=== PATIENT | male | born 1960 | race Caucasian/White ===

== ENCOUNTER 2021-12-07 09:14 | Emergency (ER) | payer OTHER ==
[~2021-12-07] VITALS: Ht 170.2 cm; Wt 102.1 kg
--- NOTE | 2021-12-07 09:30 | NUR ---
To ER bed 04,RA39 From [facility] "Initial call was for weakness/Lethargic/pinpoint pupils/Hypotensive/low O2sats 89% gave narcan 4mg and 2IVP NS600 BS127, breathing even and non labored, connected to monitor, awaiting md rodriguez
--- NOTE | 2021-12-07 09:36 | NUR ---
DR MCNEIL AT BEDSIDE FOR EVAL
--- NOTE | 2021-12-07 09:37 | NUR ---
hooked to monitors
--- NOTE | 2021-12-07 09:38 | NUR ---
bood sample drawn sent to lab
--- NOTE | 2021-12-07 09:40 | NUR ---
urine sample collected sent to lab
--- NOTE | 2021-12-07 09:49 | NUR ---
TECH AT BEDSIDE FOR EKG
--- NOTE | 2021-12-07 09:50 | NUR ---
COVID SWAB COLLECTED AND SENT TO LAB
--- NOTE | 2021-12-07 09:52 | NUR ---
TAKEN TO CT VIA [facility]
[2021-12-07] MEDS ORDERED: IV NS 0.9% 1,000 ML BAG IV ONE (10:00)
[2021-12-07 10:01] LABS: BASOPHILS % (AUTO) 0.3 % (0.0-2.0); EOSINOPHILS % (AUTO) 1.7 % (0.0-6.0); HEMATOCRIT 38 % (39-51); HEMOGLOBIN 13.1 g/dL (13.5-17.5); LYMPHOCYTES # (AUTO) 0.6 K/uL (0.8-4.8); LYMPHOCYTES % (AUTO) 24.3 % (20.0-44.0); MEAN CORPUSCULAR HGB CONC 34 g/dl (31.0-36.0); MEAN CORPUSCULAR VOLUME 94 fL (80-96); MONOCYTES # (AUTO) 0.3 K/uL (0.1-1.30); NEUTROPHILS # (AUTO) 1.4 K/uL (1.8-8.9); NEUTROPHILS % (AUTO) 61.7 % (43.0-81.0); PLATELET COUNT (AUTO) 57 K/uL (150-450); RED BLOOD CELL COUNT(AUTO) 4.06 MIL/uL (4.5-6.0); WHITE BLOOD COUNT (AUTO) 2.3 K/uL (4.3-11.0)
[2021-12-07 10:16] LABS: CALCIUM, SERUM 8.2 mg/dL (8.5-10.1); CARBON DIOXIDE 27 mmol/L (21-32); CHLORIDE 103 mmol/L (98-107); CREATININE 0.5 mg/dL (0.6-1.3); GLUCOSE 150 mg/dL (74-106); POTASSIUM 3.1 mmol/L (3.5-5.1); SODIUM SERUM 138 mmol/L (136-145); UREA NITROGEN, BLOOD 14 mg/dL (7-18)
[2021-12-07 10:21] LABS: ALANINE AMINOTRANSFERASE 48 U/L (12-78); ALBUMIN 3.2 g/dL (3.4-5.0); ALCOHOL, BLOOD < 3 mg/dL (0-0); ALKALINE PHOSPHATASE 70 U/L (46-116); ASPARTATE AMINOTRANSFERASE 54 U/L (15-37); BILIRUBIN,DIRECT 0.6 mg/dL (0.0-0.2); BILIRUBIN,TOTAL 1.7 mg/dL (0.2-1.0); TOTAL PROTEIN, SERUM 6.3 g/dL (6.4-8.2)
[2021-12-07 10:27] LABS: ACETAMINOPHEN < 10 ug/ml (10-30)
[2021-12-07 10:35] LABS: THYROID STIMULATING HORMONE 1.768 uIU/mL (0.358-3.74)
[2021-12-07 12:12] LABS: BAND % (MANUAL) 1 % (0.0-5.0); EOSINOPHILS % (MANUAL) 4 % (0-4); LYMPHOCYTES % (MANUAL) 22 % (16-48); MONOCYTES % (MANUAL) 7 % (0-11.0); NEUTROPHILS % (MANUAL) 66 (42-76)
[2021-12-07] MEDS ORDERED: VANCOMYCIN 1 GM in IV D5W 250 ML IV ONE (12:30)
--- NOTE | 2021-12-07 13:02 | NUR ---
MOVE SHEET SUBMITTED.
[2021-12-07] MEDS: POTASSIUM CL. PREMIX PERIPHER. 50 ML IV SCH ×4 (13:10→16:00)
[2021-12-07] MEDS ORDERED: POTASSIUM CL. PREMIX PERIPHER. 150 ML ONE (13:10)
[2021-12-07] MEDS ORDERED: POTASSIUM CL. PREMIX PERIPHER. 50 ML ONE (13:10)
--- NOTE | 2021-12-07 15:00 | NUR ---
DR. MORENO SPEAKING WITH DR. ESTES.
[2021-12-07] MEDS ORDERED: POTASSIUM CHLORIDE 20 MEQ TAB.PRT.SR PO ONE ×2 (17:30→17:44)
--- NOTE | 2021-12-07 17:40 | NUR ---
MD MADE AWARE THAT PT ABLE TO SWALLOW PO MEDS. OK FOR MD TO SWITCH POTASSIUM TO PO. ORDER FOR K DUR 20MEQ NOTED AND CARRIED OUT; ORDER WAS READ BACK AND VERIFIED.
--- NOTE | 2021-12-07 17:56 | NUR ---
SPOKE WITH PRAVEEN CORTÉS OF [facility] WILL LET [facility] KNOW OF TRANSFER AND TRANSPORT INFO ONCE AVAILABLE
[2021-12-07] MEDS ORDERED: PIPERACILLIN /TAZOBACTAM 4.5 G in IV D5W 50 ML IV ONE (18:00)
--- NOTE | 2021-12-07 18:45 | NUR ---
PT ACCEPTED TO [facility] [id number] [place] PLEASE CALL [phone] FOR REPORT. PRAVEEN [phone]
--- NOTE | 2021-12-07 18:51 | NUR ---
[facility] CALLED FOR TRANSPORT ETA 75-90 MINS.
--- NOTE | 2021-12-07 19:30 | NUR ---
REPORT RECEIVED FROM HIEN DUTTON
--- NOTE | 2021-12-07 19:44 | NUR ---
REPORT GIVEN TO YONATHAN DUBOIS OF [facility] TRAN[facility] [id number]
--- NOTE | 2021-12-07 19:50 | NUR ---
REPORT GIVEN TO LEE STANFORD FOR [facility]
--- NOTE | 2021-12-07 20:30 | NUR ---
TRANSFERRED PATIENT TO [facility]
[2021-12-07 22:23] VITALS: BP 145/71
== END 2021-12-07 20:30 | disposition short-term general hospital (02) ==
LOC: ER 09:16
DX: J18.9 Pneumonia, unspecified organism (principal); Z20.822 Contact with and (suspected) exposure to COVID-19; Z59.00 Homelessness unspecified; M19.90 Unspecified osteoarthritis, unspecified site; Z86.59 Personal history of other mental and behavioral disorders
CPT/HCPCS: 99285; 96365; 96361 ×2; 96367; 93005; 71045; 70450; 85025; 80048; 80076; 85007; 36415; 84443; 84484; 87081; 82962; 87426; 80143; 80320; 80307; J3370; J2543; J7060; J3480 ×2; C9803; G0480